=== PATIENT | female | born 1970 | race Caucasian/White ===

== ENCOUNTER → 2016-12-07 | Outpatient (CLI) | payer OTHER | LOC: BMCIMAGING 08:59 | PROVIDERS: ATTEND Obstetrics & Gynecology | DX: Z12.31 Encounter for screening mammogram for malignant neoplasm of breast (principal) | CPT/HCPCS: G0202 ==

== ENCOUNTER → 2017-10-24 | Outpatient (CLI) | payer OTHER | LOC: FIMAGING 14:47 | PROVIDERS: ATTEND Obstetrics & Gynecology | DX: M79.622 Pain in left upper arm (principal) ==

== ENCOUNTER 2017-12-01 20:33 | Observation (INO) | payer OTHER ==
--- NOTE | 2017-12-01 20:49 | CPEKG ---
Heart Rate: 74 RR Interval: 811 P-R Interval: 196 QRSD Interval: 140 QT Interval: 424 QTC Interval: 471 P [place]: 51 QRS [place]: -36 T Wave [place]: 97 EKG Severity - ABNORMAL ECG - EKG Impression: SINUS RHYTHM EKG Impression: LEFT BUNDLE BRANCH BLOCK Electronically Signed By: Michael Elizabeth 02-Dec-2017 06:54:33
[2017-12-01] MEDS ORDERED: NS 1,000 ML IV ONE (20:51)
[2017-12-01] MEDS ORDERED: ASPIRIN 81 MG CHEWABLE TAB PO ONE (20:51)
[2017-12-01] MEDS ORDERED: ASPIRIN 81 MG CHEWABLE TAB ONE (20:51)
--- NOTE | 2017-12-01 20:52 | EDPHY ---
H & P Stated Complaint: left side CP that radiates into back and down left shoulder 1800 Time Seen by Provider: 12/01/17 20:52 HPI/ROS: HPI CHIEF COMPLAINT: Chest pain HISTORY OF PRESENT ILLNESS: Patient is a 46-year-old female, she presents emergency room with chest pain. Patient states that around 6:00 p.m. Or approximately 3 hr ago she was at rest sitting on the couch and she developed sudden-onset chest discomfort. She describes the pain as a achy pain left side of her chest that went down her left arm she states it did radiate to her left back little bit. No jaw pain. No diaphoresis. No vomiting. She states the pain has since gone away but she does have some discomfort in her left back. Additionally she reports that she had tingling in her left arm. Also additionally she reports when she takes deep breath in she has some pleuritic pain. She has never had a history of heart disease. Patient does take control. She does not smoke. Past Medical History: Denies significant medical history Past Surgical History: Cholecystectomy Social History: Denies drugs alcohol tobacco. Family History: Denies any significant cardiac disease in her family. ROS REVIEW OF SYSTEMS: A comprehensive 10 point review of systems is otherwise negative aside from elements mentioned in the history of present illness. Exam Constitutional appears nontoxic triage nursing summary reviewed, vital signs reviewed, awake/alert. Eyes normal conjunctivae and sclera, EOMI, PERRLA. HENT normal inspection, atraumatic, moist mucus membranes, no epistaxis, neck supple/ no meningismus, no raccoon eyes. Respiratory clear to auscultation bilaterally, normal breath sounds, no respiratory distress, no wheezing. Cardiovascular rate normal, regular rhythm, no murmur, no edema, distal pulses normal. Gastrointestinal soft, non-tender, no rebound, no guarding, normal bowel sounds, no distension, no pulsatile mass. Genitourinary no CVA tenderness. Musculoskeletal no midline vertebral tenderness, full range of motion, no calf swelling, no tenderness of extremities, no meningismus, good pulses, neurovascularly intact. Skin pink, warm, & dry, no rash, skin atraumatic. Neurologic awake, alert and oriented x 3, AAOx3, moves all 4 extremities equally, motor intact, sensory intact, CN II-XII intact, normal cerebellar, normal vision, normal speech. Psychiatric normal mood/affect. Heme/Lymph/Immune no lymphadenopathy. Differential diagnosis includes but is not limited to: ACS, atypical chest pain , pneumothorax, pneumonia, pulmonary embolism, aortic dissection, congestive heart failure, tumor, musculoskeletal pain, esophageal pain, GERD, peptic ulcer disease, pancreatitis Medical Decision Making: Plan for this patient IV establishment full satellite project site monitor obtain EKG, obtain troponin, rule out acute coronary syndrome, rule out PE Re-evaluation: EKG interpretation by me on record in [employer] system. Impression time of EKG 2046, this is sinus rhythm rate of 74 there is a left bundle-branch block present. Otherwise no acute ischemic change. Patient states that she thinks she does have a history of a left bundle branch block. ED x-ray chest one view: Negative for acute cardiopulmonary disease. 2233: Spoke with Dr. sue boyle with Cardiology. Discussed the case. They will consult on the patient inpatient. Additionally spoke with Dr. Arana who agrees to admit. 2234: I did re-evaluate the patient this time she is chest pain-free. Troponin is noted to be negative. Negative D-dimer chest x-ray unremarkable his left bundle-branch block. No acute ischemia. Source: Patient - Personal History LMP (Females 10-55): 8-14 Days Ago Current Tetanus/Diphtheria Vaccine: Yes Current Tetanus Diphtheria and Acellular Pertussis (TDAP): Yes Tetanus Vaccine Date: 2015 - Medical/Surgical History Hx Asthma: No Hx Chronic Respiratory Disease: No Hx Diabetes: No Hx Cardiac Disease: No Hx Renal Disease: No Hx Cirrhosis: No Hx Alcoholism: No Hx HIV/AIDS: No Hx Splenectomy or Spleen Trauma: No Other PMH: cholecystectomy - Social History Smoking Status: Never smoked Constitutional: Initial Vital Signs Temperature (C) 36.8 C 12/01/17 20:35 Heart Rate 74 12/01/17 20:35 Respiratory Rate 16 12/01/17 20:35 Blood Pressure 152/96 H 12/01/17 20:35 O2 Sat (%) 94 12/01/17 20:35 O2 Delivery Mode Room Air Allergies/Adverse Reactions: No Known Allergies Allergy (Unverified 12/01/17 20:38) Home Medications: Medication Instructions Recorded ALPRAZolam [Xanax 1 MG (*)] 1 mg PO HS PRN 12/01/17 Ferrous Sulfate [Ferrous Sulf 325 325 mg PO HS 12/01/17 MG (*)] Norethindrone 1 each PO HS 12/01/17 Ibuprofen [Motrin (*)] 200 mg PO DAILY PRN 12/02/17 Medical Decision Making - Data Points Laboratory Results: Laboratory Results 12/01/17 20:54 12/01/17 20:54 Medications Given: Discontinued Medications Alprazolam (Xanax) 1 mg PO HS PRN PRN Reason: Sleep/Insomnia Stop: 05/31/18 10:06 Last Admin: 12/02/17 22:17 Dose: 1 mg Aspirin (Aspirin) 324 mg PO EDNOW ONE Stop: 12/01/17 20:52 Last Admin: 12/01/17 20:53 Dose: 324 mg Ferrous Sulfate (Ferrous Sulfate) 325 mg PO HS JERRI Stop: 05/31/18 20:59 Last Admin: 12/02/17 19:32 Dose: Not Given Ferrous Sulfate (Ferrous Sulfate) 325 mg PO HS JERRI Stop: 05/31/18 20:59 Last Admin: 12/02/17 22:16 Dose: Not Given Sodium Chloride (Ns) 1,000 mls @ 0 mls/hr IV EDNOW ONE; Wide Open PRN Reason: Protocol Stop: 12/01/17 20:52 Last Admin: 12/01/17 21:15 Dose: 1,000 mls Ibuprofen (Motrin) 200 mg PO DAILY PRN PRN Reason: Pain, Mild Stop: 05/31/18 10:06 Last Admin: 12/02/17 19:50 Dose: 200 mg Miscellaneous Medication (Norethindrone [Norethindrone]) 1 each PO HS JERRI Stop: 05/31/18 20:59 Last Admin: 12/02/17 19:34 Dose: Not Given Point of Care Test Results: Chemistry 12/01/17 20:59 POC Troponin I 0.00 ng/mL ng/mL (0.00-0.08) Departure - Departure Disposition: [facility] Inpatient Acute Clinical Impression: Left bundle branch block Chest pain Qualifiers: Chest pain type: unspecified Qualified Code(s): R07.9 - Chest pain, unspecified Condition: Fair
[2017-12-01 21:11] LABS: PLATELET COUNT 226 10^3/uL (150-400)
[2017-12-01 21:19] LABS: PROTIME(PATIENT) 13.4 SEC (12.0-15.0)
[2017-12-01] MEDS ORDERED: ONDANSETRON DISINTEGRATING 4 MG TAB PO PRN (22:34)
[2017-12-01] MEDS ORDERED: ONDANSETRON 4 MG/2 ML VIAL IVP PRN (22:34)
[2017-12-01] MEDS ORDERED: ACETAMINOPHEN 325 MG TAB PO PRN (22:34)
--- NOTE | 2017-12-02 02:15 | PDGENHP ---
History and Physical - Chief Complaint Chest pain - History of Present Illness 46 yo F w/ no significant PMHx presents with chest pain. She noted acute onset chest pain around 6 PM, rating this a 7/10 severity. The pain started at rest and eventually spread to involve her L arm as well. She experienced some nausea but denies SOB, dizziness, or diaphoresis. She has no prior hx of cardiac disease. She tells me she had an echocardiogram performed 1 month ago for evaluation of a murmur. I reviewed the results of the echocardiogram (available in [place]) and this was essentially normal aside from trivial TR, trivial MR, and mild AI. In the ED work-up was unremarkable aside from LBBB noted on ECG. I am not able to find a prior for comparison. At the time of my evaluation patient is chest pain free and without complaint. History Information - Allergies/Home Medication List Allergies/Adverse Reactions: No Known Allergies Allergy (Unverified 12/01/17 20:38) Home Medications: ALPRAZolam 12/01/17 [Last Taken Unknown] Ferrous Sulfate 12/01/17 [Last Taken Unknown] Mylan 12/01/17 [Last Taken Unknown] I have personally reviewed and updated: family history, medical history - Past Medical History no pertinent PMH - Surgical History Reports: cholecystectomy - Family History Additional family history: Grandmother had CHF - Social History Smoking Status: Never smoked Review of Systems Review of Systems: ROS: 10pt was reviewed & negative except for what was stated in HPI & below Physical Exam Physical Exam: Temp Pulse Resp BP Pulse Ox 37.0 C 79 16 163/88 H 94 12/01/17 23:34 12/01/17 23:34 12/01/17 23:34 12/01/17 23:34 12/01/17 23:34 Constitutional: no apparent distress, obese Eyes: PERRL, EOMI Ears, Nose, Mouth, Throat: moist mucous membranes, no oral mucosal ulcers Cardiovascular: regular rate and rhythym, systolic murmur Respiratory: no respiratory distress, clear to auscultation Gastrointestinal: normoactive bowel sounds, soft, non-tender abdomen Skin: warm, normal color Musculoskeletal: full muscle strength, no muscle tenderness Neurologic: AAOx3, CN II-XII Intact Psychiatric: interacting appropriately, not anxious Lab Data & Imaging Review 12/01/17 20:54 12/01/17 20:54 WBC 7.77 10^3/uL (3.80-9.50) 12/01/17 20:54 RBC 4.32 10^6/uL (4.18-5.33) 12/01/17 20:54 Hgb 12.7 g/dL (12.6-16.3) 12/01/17 20:54 Hct 38.5 % (38.0-47.0) 12/01/17 20:54 MCV 89.1 fL (81.5-99.8) 12/01/17 20:54 MCH 29.4 pg (27.9-34.1) 12/01/17 20:54 MCHC 33.0 g/dL (32.4-36.7) 12/01/17 20:54 RDW 15.3 % (11.5-15.2) H 12/01/17 20:54 Plt Count 226 10^3/uL (150-400) 12/01/17 20:54 MPV 9.7 fL (8.7-11.7) 12/01/17 20:54 Neut % (Auto) 66.1 % (39.3-74.2) 12/01/17 20:54 Lymph % (Auto) 26.0 % (15.0-45.0) 12/01/17 20:54 [place] % (Auto) 6.0 % (4.5-13.0) 12/01/17 20:54 Eos % (Auto) 1.2 % (0.6-7.6) 12/01/17 20:54 Baso % (Auto) 0.4 % (0.3-1.7) 12/01/17 20:54 Nucleat RBC Rel Count 0.0 % (0.0-0.2) 12/01/17 20:54 Absolute Neuts (auto) 5.14 10^3/uL (1.70-6.50) 12/01/17 20:54 Absolute Lymphs (auto) 2.02 10^3/uL (1.00-3.00) 12/01/17 20:54 Absolute Monos (auto) 0.47 10^3/uL (0.30-0.80) 12/01/17 20:54 Absolute Eos (auto) 0.09 10^3/uL (0.03-0.40) 12/01/17 20:54 Absolute Basos (auto) 0.03 10^3/uL (0.02-0.10) 12/01/17 20:54 Absolute Nucleated RBC 0.00 10^3/uL (0-0.01) 12/01/17 20:54 Immature Gran % 0.3 % (0.0-1.1) 12/01/17 20:54 Immature Gran # 0.02 10^3/uL (0.00-0.10) 12/01/17 20:54 ESR 9 MM/HR (0-20) 12/01/17 20:54 PT 13.4 SEC (12.0-15.0) 12/01/17 20:54 INR 1.00 (0.83-1.16) 12/01/17 20:54 APTT 27.0 SEC (23.0-38.0) 12/01/17 20:54 D-Dimer < 0.27 ug/mLFEU (0.00-0.50) 12/01/17 20:54 Sodium 140 mEq/L (135-145) 12/01/17 20:54 Potassium 4.3 mEq/L (3.3-5.0) 12/01/17 20:54 Chloride 105 mEq/L (97-110) 12/01/17 20:54 Carbon Dioxide 21 mEq/l (22-31) L 12/01/17 20:54 Anion Gap 14 mEq/L (8-16) 12/01/17 20:54 BUN 10 mg/dL (7-23) 12/01/17 20:54 Creatinine 0.6 mg/dL (0.6-1.0) 12/01/17 20:54 Estimated GFR > 60 12/01/17 20:54 Glucose 86 mg/dL (70-100) 12/01/17 20:54 Calcium 8.9 mg/dL (8.5-10.4) 12/01/17 20:54 Magnesium 1.9 mg/dL (1.6-2.3) 12/01/17 20:54 Total Bilirubin 0.4 mg/dL (0.1-1.4) 12/01/17 20:54 Conjugated Bilirubin 0.4 mg/dL (0.0-0.5) 12/01/17 20:54 Unconjugated Bilirubin 0.0 mg/dL (0.0-1.1) 12/01/17 20:54 AST 24 IU/L (14-46) 12/01/17 20:54 ALT 37 IU/L (9-52) 12/01/17 20:54 Alkaline Phosphatase 39 IU/L (38-126) 12/01/17 20:54 POC Troponin I 0.00 ng/mL (0.00-0.08) 12/01/17 20:59 NT-Pro-B Natriuret Pep 45 pg/mL (0-125) 12/01/17 20:54 Total Protein 7.0 g/dL (6.3-8.2) 12/01/17 20:54 Albumin 4.0 g/dL (3.5-5.0) 12/01/17 20:54 Lipase 66 IU/L (23-300) 12/01/17 20:54 Imaging Review: Imaging Impressions Chest X-Ray 12/01/17 20:51 Impression: No acute findings in the chest. Visualized and Interpreted Chest x-ray results: Yes Chest X-Ray results: no infiltrate Visualized and Interpreted EKG results: Yes EKG Interpretation: Positive for: normal sinsus rhythm, other (LBBB) Assessment & Plan Assessment: 46 yo F w/ no PMHx presents with chest pain and LBBB on ECG. Plan: 1. Chest pain - Atypical in that pain began at rest and has no relation to exertion. Initial troponin negative but ECG does show LBBB of unclear acuity( personally interpreted). Patient had an echocardiogram performed on 09/05 that was mostly unremarkable aside from mild valvular abnormalities(trivial TR, trivial MR, and mild AI). D-dimer negative and CXR unremarkable. - Admit to PCU for observation - Cardiology (Dr. Gan) consulted noting LBBB of unclear acuity - Monitor on telemetry, trend cardiac enzymes - Discussed case with Dr. Vasquez Diet - Regular Code - Full Ppx - Low risk Dispo - Admit under observation status
[2017-12-02 03:58] LABS: PLATELET COUNT 171 10^3/uL (150-400)
--- NOTE | 2017-12-02 10:06 | HOSPPROG ---
Hospitalist Progress Note Assessment/Plan: 46 yo F w LBBB here w cp CP: neg trop ekg uninterpretable stress today await results Subjective: cp improved. no events tele (interp by me). per her, LBBB not new Objective: Vital Signs Temp Pulse Resp BP Pulse Ox 36.8 C 87 16 144/84 H 96 12/02/17 07:15 12/02/17 07:15 12/02/17 07:15 12/02/17 07:15 12/02/17 07:15 Laboratory Results 12/02/17 03:24 12/02/17 03:24 12/01/17 12/02/17 12/03/17 05:59 05:59 05:59 Intake Total 1100 Balance 1100 PT 13.4 SEC (12.0-15.0) 12/01/17 20:54 INR 1.00 (0.83-1.16) 12/01/17 20:54 - Physical Exam Constitutional: no apparent distress, appears nourished Eyes: PERRL, anicteric sclera Ears, Nose, Mouth, Throat: moist mucous membranes, hearing normal Cardiovascular: regular rate and rhythym, no murmur, rub, or gallop Respiratory: no respiratory distress, no rales or rhonchi Gastrointestinal: normoactive bowel sounds, soft, non-tender abdomen Genitourinary: no bladder fullness, No aquino in urethra Skin: warm, normal color Musculoskeletal: full muscle strength ICD10 Worksheet Patient Problems: Problems Problem Status Onset Chest pain Acute Left bundle branch block Acute
[2017-12-02] MEDS ORDERED: IBUPROFEN 200 MG TAB PO PRN (10:07)
[2017-12-02] MEDS ORDERED: ALPRAZolam 1 MG TAB PO PRN ×2 (10:07→20:00)
--- NOTE | 2017-12-02 14:01 | ASMTCMCOM ---
CM Note CM Note Notes: 12/02/2017 Case Management Note Reviewed pt during rounds this morning. Pt admitted for chest pain and subsequent work up. Met with pt to discuss d/c needs. There are no case management d/c needs identified. Pt is with family support. Pt works at [employer]. She is independent in ADL's prior to admission. Case Management d/c poc: anticipating independent with follow up as directed. Case Management available if needs change. Date Signed: 12/02/2017 02:01 PM Electronically Signed By:Mariya Lino RN
--- NOTE | 2017-12-02 15:00 | PDCARCONS ---
Cardiology Consult Reason for Consult: Chest pain at rest, Abnormal EKG Chief Complaint: Chest pain at rest Requesting Physician: Dr. Owen, Hospitalist History of Present Illness: Malinda is a 46-year-old female with no significant cardiac history. She presented to the Emergency Department yesterday, 12/01/17, with chest pain that started at rest. The patient states she was sitting on the couch when she developed left sided chest pain. She has a history of anxiety with that causes chest discomfort occasionally. She took a Xanax, but found no relief. Her pain progressed and began to radiate into her back with associated left arm paraesthesia. She went to the Urgent Care in [place] and was told to come to the ED due to EKG abnormalities that showed LBBB. In the ED Malinda had a negative workup aside from the LBBB seen on her EKG. 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 Of note, Malinda saw her PCP recently because of ongoing fever (99 degrees), " bone pain", and fatigue since June. Her PCP ordered an outpatient echocardiogram. The echo was relatively normal aside from trivial TR and MR and mild AI. Malinda believes these symptoms are related to an event where a patient with mono, strep, and CMV coughed in her face back in June. She first noted the febrile illness a few days after that incident. She was also found to have significant anemia, but has a history of heave menses. History Information - Allergies/Home Medication List Allergies/Adverse Reactions: No Known Allergies Allergy (Unverified 12/01/17 20:38) Home Medications: ALPRAZolam [Xanax 1 MG (*)] 1 mg PO HS PRN 12/01/17 [Last Taken 12/01/17] Ferrous Sulfate [Ferrous Sulf 325 MG (*)] 325 mg PO HS 12/01/17 [Last Taken 04/10] Norethindrone 1 each PO HS 12/01/17 [Last Taken 12/01/17] Ibuprofen [Motrin (*)] 200 mg PO DAILY PRN 12/02/17 [Last Taken Unknown] I have personally reviewed and updated: family history, medical history, social history, surgical history Past Medical History: Anxiety, Anemia - Surgical History Reports: no pertinent surgical hx - Family History Additional family history: Grandmother with CHF - Social History Smoking Status: Never smoked Drug Use: None Additional social history: The patient is with 6 children. She works as an medical care manager. Cardiac History - Cardiac History Cardiac Risk Factors: none Timing/Duration: Hours Severity: moderate Location: other (Left sided) Activities at Onset: none Associated Symptoms: other (left arm paresthesia, back pain) KATIA Risk Evaluation age greater or equal to 65: no greater or equal to 3 CAD risk factors: no known CAD(stenosis greater or eqaul to 50%): no ASA use in past 7 days: no severe angina(greater or equal to 2 episodes in 24hrs): yes EKG ST changes greater or equal to 0.5mm: no positive cardiac marker: no Total Score: 1 KATIA Score: 4.7% risk Physical Exam Physical Exam: Temp Pulse Resp BP Pulse Ox 36.8 C 74 16 150/89 H 93 12/02/17 11:09 12/02/17 11:12/02/17 11:12/02/17 11:12/02/17 11:09 Constitutional: no apparent distress Eyes: PERRL, EOMI Ears, Nose, Mouth, Throat: moist mucous membranes Cardiovascular: regular rate and rhythym, no murmur, rub, or gallop Peripheral Pulses: 2+: carotid (R), carotid (L), femoral (R), femoral (L), dorsalis-pedis (R), dorsalis-pedis (L) Respiratory: no respiratory distress Gastrointestinal: normoactive bowel sounds, soft, non-tender abdomen Skin: warm, normal color Musculoskeletal: full muscle strength Neurologic: AAOx3 Psychiatric: interacting appropriately Lab and Imaging 12/02/17 03:24 12/02/17 03:24 WBC 5.76 10^3/uL (3.80-9.50) 12/02/17 03:24 RBC 3.96 10^6/uL (4.18-5.33) L 12/02/17 03:24 Hgb 11.7 g/dL (12.6-16.3) L 12/02/17 03:24 Hct 36.0 % (38.0-47.0) L 12/02/17 03:24 MCV 90.9 fL (81.5-99.8) 12/02/17 03:24 MCH 29.5 pg (27.9-34.1) 12/02/17 03:24 MCHC 32.5 g/dL (32.4-36.7) 12/02/17 03:24 RDW 15.2 % (11.5-15.2) 12/02/17 03:24 Plt Count 171 10^3/uL (150-400) 12/02/17 03:24 MPV 10.1 fL (8.7-11.7) 12/02/17 03:24 Neut % (Auto) 54.7 % (39.3-74.2) 12/02/17 03:24 Lymph % (Auto) 36.3 % (15.0-45.0) 12/02/17 03:24 [place] % (Auto) 6.9 % (4.5-13.0) 12/02/17 03:24 Eos % (Auto) 1.4 % (0.6-7.6) 12/02/17 03:24 Baso % (Auto) 0.5 % (0.3-1.7) 12/02/17 03:24 Nucleat RBC Rel Count 0.0 % (0.0-0.2) 12/02/17 03:24 Absolute Neuts (auto) 3.15 10^3/uL (1.70-6.50) 12/02/17 03:24 Absolute Lymphs (auto) 2.09 10^3/uL (1.00-3.00) 12/02/17 03:24 Absolute Monos (auto) 0.40 10^3/uL (0.30-0.80) 12/02/17 03:24 Absolute Eos (auto) 0.08 10^3/uL (0.03-0.40) 12/02/17 03:24 Absolute Basos (auto) 0.03 10^3/uL (0.02-0.10) 12/02/17 03:24 Absolute Nucleated RBC 0.00 10^3/uL (0-0.01) 12/02/17 03:24 Immature Gran % 0.2 % (0.0-1.1) 12/02/17 03:24 Immature Gran # 0.01 10^3/uL (0.00-0.10) 12/02/17 03:24 ESR 9 MM/HR (0-20) 12/01/17 20:54 PT 13.4 SEC (12.0-15.0) 12/01/17 20:54 INR 1.00 (0.83-1.16) 12/01/17 20:54 APTT 27.0 SEC (23.0-38.0) 12/01/17 20:54 D-Dimer < 0.27 ug/mLFEU (0.00-0.50) 12/01/17 20:54 Sodium 143 mEq/L (135-145) 12/02/17 03:24 Potassium 3.9 mEq/L (3.3-5.0) 12/02/17 03:24 Chloride 112 mEq/L (97-110) H 12/02/17 03:24 Carbon Dioxide 25 mEq/l (22-31) 12/02/17 03:24 Anion Gap 6 mEq/L (8-16) L 12/02/17 03:24 BUN 10 mg/dL (7-23) 12/02/17 03:24 Creatinine 0.7 mg/dL (0.6-1.0) 12/02/17 03:24 Estimated GFR > 60 12/02/17 03:24 Glucose 91 mg/dL (70-100) 12/02/17 03:24 Calcium 8.5 mg/dL (8.5-10.4) 12/02/17 03:24 Phosphorus 3.5 mg/dL (2.5-4.5) 12/02/17 03:24 Magnesium 1.9 mg/dL (1.6-2.3) 12/02/17 03:24 Total Bilirubin 0.4 mg/dL (0.1-1.4) 12/01/17 20:54 Conjugated Bilirubin 0.4 mg/dL (0.0-0.5) 12/01/17 20:54 Unconjugated Bilirubin 0.0 mg/dL (0.0-1.1) 12/01/17 20:54 AST 24 IU/L (14-46) 12/01/17 20:54 ALT 37 IU/L (9-52) 12/01/17 20:54 Alkaline Phosphatase 39 IU/L (38-126) 12/01/17 20:54 POC Troponin I 0.00 ng/mL (0.00-0.08) 12/01/17 20:59 Troponin I < 0.012 ng/mL (0.000-0.034) 12/02/17 03:24 NT-Pro-B Natriuret Pep 45 pg/mL (0-125) 12/01/17 20:54 Total Protein 7.0 g/dL (6.3-8.2) 12/01/17 20:54 Albumin 4.0 g/dL (3.5-5.0) 12/01/17 20:54 Lipase 66 IU/L (23-300) 12/01/17 20:54 Visualized and Interpreted Chest x-ray results: Yes Chest X-ray Interpretation: normal Visualized and Interpreted EKG results: Yes EKG Interpretation: Positive for: left bundle branch block Telemetry: I reviewed the raw data from the rhythm strips. No significant tachy or sanjana dysrhythmia identified. Echocardiogram: Reviewed results of outpatient echo, which was unremarkable. A/P Assessment: I interpreted the patient's EKG, which shows LBBB. This does not seem to be acute given that the patient had it on an old EKG 2 years ago (though we do not have access to this data). The patient continues to have chest discomfort, though it has improved slightly since onset. I recommend the patient have an Adenosine nuclear stress test to look at myocardial perfusion and to rule out flow limiting obstruction. If the patient's nuclear stress test is normal, then I think it is unlikely that she has inadequate blood flow to the heart. If the nuclear stress test is abnormal, then I would have a low threshold for angiogram. Plan: We will obtain an Adenosine nuclear stress test given the patient is symptomatic and has LBBB on her EKG. If the patient's nuclear stress test is normal, then I think it is unlikely that she has inadequate blood flow to the heart. I would like her to follow up with her advanced manufacturing consultant as scheduled on Saturday. If the nuclear stress test is abnormal, then I would have a low threshold for an angiogram.
[2017-12-02] MEDS ORDERED: NORETHINDRONE 0.35 MG PO SCH (21:00)
[2017-12-02] MEDS ORDERED: FERROUS SULFATE 325 MG TAB PO SCH ×2 (21:00)
--- NOTE | 2017-12-03 22:29 | CPR ---
[f rep st] NONINVASIVE CARDIAC PROCEDURE REPORT DATE OF PROCEDURE: 12/03/2017 PROCEDURE PERFORMED: Lexiscan nuclear stress test. INDICATION: The patient is a 46-year-old female who presented to the hospital with left-sided chest, back and shoulder discomfort. Her symptoms began while she was seated, but she did do fairly heavy physical exertion prior to that. Her symptoms lasted for hours and were not associated with nausea, shortness of breath or diaphoresis. Her risk factors for coronary artery disease include family hist ory of premature CAD. Her uncle had a fatal MS in his early 50s. PROCEDURE: Consent was obtained, and the patient was placed on continuous telemetry. Her resting EK G revealed normal sinus rhythm with a left bundle branch block. The patient was infused with Evette an d complained of a flushing and shortness of breath. She remained in normal sinus rhythm with a left bundle branch block throughout the procedure. Her blood pressure remained stable throughout the proc edure. PLAN: Await nuclear images. /[id number]/MODL
--- NOTE | 2017-12-03 22:30 | GDS ---
[f rep st] DISCHARGE SUMMARY DISCHARGE DIAGNOSES: 1. Chest pain resolved. 2. Left bundle branch block, chronic. 3. Myalgias. HISTORY: For details please see the history and physical dated December 01, 2017. In brief, the patient is a 46-year-old female who has recently undergone a rheumatologic workup for low-grade fevers and my algias. Presents to the emergency department with chest pain. She was admitted to the hospital for further evaluation. HOSPITAL COURSE: Patient was admitted to the cardiac telemetry unit. Her initial EKG showed her lef t bundle branch block, which turns out is an old finding. There were no ST-segment or T-wave changes concerning for acute ischemia. She had negative troponins. She underwent a nuclear medicine stress test which revealed no evidence of ischemia. At this point, it seems unlikely that her chest pain i s cardiac and recommend she follow up with her outpatient anesthesiologist physician for further workup. In katherine tion, she did have an echocardiogram which was essentially normal. DISPOSITION: The patient is discharged home in stable condition. FOLLOWUP: 1. Primary care. 2. Rheumatology. DISCHARGE MEDICATIONS: Please see [facility] for completed outpatient medication list. There are no n ew medications at discharge. /[id number]/MODL
[2017-12-04 07:08] VITALS: BP 138/78
== END 2017-12-03 16:45 | disposition home or self-care (01) ==
LOC: F2W 23:05
PROVIDERS: ADMIT Student in an Organized Health Care Education/Training Program; ATTEND Student in an Organized Health Care Education/Training Program
DX: R07.9 Chest pain, unspecified (principal); I44.7 Left bundle-branch block, unspecified; M79.1 Myalgia; Z90.49 Acquired absence of other specified parts of digestive tract
CPT/HCPCS: 71045; 78452; 93005; 93017; A9500; G0378; 84484-PO